=== PATIENT | female | born 2000 | race African-American/Black ===

== ENCOUNTER 2024-10-11 08:46 | Emergency (ER) | payer MEDICAID, SELFPAY ==
[2024-10-11] MEDS ORDERED: Ibuprofen 800 MG TAB ONE (09:35)
== END 2024-10-11 11:14 | disposition home or self-care (01) ==
LOC: ERS 08:46
DX: B34.9 Viral infection, unspecified (principal); F17.210 Nicotine dependence, cigarettes, uncomplicated
CPT/HCPCS: 71046; 87428